=== PATIENT | female | born 1965 | race Caucasian/White ===

== ENCOUNTER → 2018-03-06 | Outpatient (CLI) | payer OTHER ==
[~2018-03-06] MED LIST: CEPH500T PO
--- NOTE | 2018-03-06 10:31 | Diagnostic Imaging Report ---
INDICATION: Right knee pain. FINDINGS: AP, oblique, and lateral views of the right knee reveal mild narrowing of the medial compartment of the right knee joint with mild marginal spurring, most pronounced in the medial compartment. No significant joint fluid is identified. There is no abnormal lytic or sclerotic focus. IMPRESSION: There is mild osteoarthritis which is most pronounced in the medial compartment; otherwise, no acute abnormality is seen. Dictated by: Dictated on workstation # [id number]
== END ==
LOC: RAD 09:40
PROVIDERS: ATTEND Nurse Practitioner Adult Health
DX: M17.11 Unilateral primary osteoarthritis, right knee (principal)
CPT/HCPCS: 73562

== ENCOUNTER → 2020-12-10 | Outpatient (CLI) | payer OTHER ==
--- NOTE | 2020-12-13 14:36 | Diagnostic Imaging Report ---
INDICATION: Routine screening. Comparison is made with prior mammogram from 06/04/2019. 2-D and 3-D bilateral screening mammography was performed with CAD. Both breasts are heterogeneously dense, limiting the sensitivity of mammography. Occasional benign calculus locations are noted. No mass or malignant-appearing microcalcifications are seen. Axillae are unremarkable. IMPRESSION: BI-RADS Category 2 No mammographic features suspicious for malignancy are identified. ACR BI-RADS Category 2: Benign findings. Result letter will be mailed to the patient. Note: At least 10% of breast cancer is not imaged by mammography. Dictated by: Dictated on workstation # [id number]
== END ==
LOC: RAD 10:15
PROVIDERS: ATTEND Family Medicine
DX: Z12.31 Encounter for screening mammogram for malignant neoplasm of breast (principal)
CPT/HCPCS: 77063; 77067